=== PATIENT | female | born 1990 | race African-American/Black ===

== ENCOUNTER 2016-10-18 01:20 | Emergency (ER) | payer SELFPAY ==
[~2016-10-18] VITALS: Ht 170.2 cm; Wt 73.9 kg
--- NOTE | 2016-10-18 01:27 | PHYS DOC ---
Past Medical History Past Medical History: No Pertinent History Past Surgical History: No Surgical History Alcohol Use: None Drug Use: None Adult General Chief Complaint Chief Complaint: ABDOMINAL PAIN IN HPI HPI Patient is a 26 year old to -[place] female who presents with intermittent abdominal pain in the left side. She states she's never had this issue before with her other states been going on for last 3 days very intermittent and comes and goes and was concerned that something could be wrong. She denies any vaginal bleeding, she states she's having her normal vaginal discharge which she's had since she's been . She denies any nausea vomiting or other concerns at this time. Review of Systems Review of Systems Constitutional: Denies fever or chills [] Eyes: Denies change in visual acuity, redness, or eye pain [] HENT: Denies nasal congestion or sore throat [] Respiratory: Denies cough or shortness of breath [] Cardiovascular: No additional information not addressed in HPI [] GI: Denies abdominal pain, nausea, vomiting, bloody stools or diarrhea [] : Denies dysuria or hematuria [] Musculoskeletal: Denies back pain or joint pain [] Integument: Denies rash or skin lesions [] Neurologic: Denies headache, focal weakness or sensory changes [] Endocrine: Denies polyuria or polydipsia [] Allergies Allergies Allergies Coded Allergies Type Severity Reaction Last Updated Verified No Known Drug Allergies 11/03/14 No Physical Exam Physical Exam Constitutional: Well developed, well nourished, no acute distress, non-toxic appearance. [] HENT: Normocephalic, atraumatic, bilateral external ears normal, oropharynx moist, no oral exudates, nose normal. [] Eyes: PERRLA, EOMI, conjunctiva normal, no discharge. [] Neck: Normal range of motion, no tenderness, supple, no stridor. [] Cardiovascular:Heart rate regular rhythm, no murmur [] Lungs & Thorax: Bilateral breath sounds clear to auscultation [] Abdomengenital exam: Bowel sounds normal, soft, no tenderness, no masses, no pulsatile masses. Normal external genitalia, no bleeding in the vault, no discharge, no cervical motion tenderness noted. Skin: Warm, dry, no erythema, no rash. [] Back: No tenderness, no CVA tenderness. [] Extremities: No tenderness, no cyanosis, no clubbing, ROM intact, no edema. [] Neurologic: Alert and oriented X 3, normal motor function, normal sensory function, no focal deficits noted. [] Psychologic: Affect normal, judgement normal, mood normal. [] Current Patient Data Vital Signs Vital Signs Date Time Temp Pulse Resp B/P (MAP) Pulse Ox O2 Delivery O2 Flow Rate FiO2 10/18/16 03:02 80 20 108/74 (85) 98 Room Air 10/18/16 01:40 98.3 98.3 Lab Values Laboratory Tests Test 10/18/16 00:55 10/18/16 01:45 10/18/16 02:00 POC Urine HCG, Qualitative Hcg positive (Negative) Urine Collection Type Unknown Urine Color Yellow Urine Clarity Clear Urine pH 6.0 Urine Specific [place] 1.025 Urine Protein Negative mg/dL (NEG-TRACE) Urine Glucose (UA) Negative mg/dL (NEG) Urine Ketones (Stick) Negative mg/dL (NEG) Urine Blood Small (NEG) Urine Nitrite Negative (NEG) Urine Bilirubin Negative (NEG) Urine Urobilinogen Dipstick 0.2 mg/dL (0.2 mg/dL) Urine Leukocyte Esterase Trace (NEG) Urine RBC 3-5 /HPF (0-2) Urine WBC 5-10 /HPF (0-4) Urine Squamous Epithelial Cells Mod /LPF Urine Bacteria Few /HPF (0-FEW) Urine Mucus Mod /LPF White Blood Count 9.3 x10^3/uL (4.0-11.0) Red Blood Count 3.63 x10^6/uL (3.50-5.40) Hemoglobin 12.2 g/dL (12.0-15.5) Hematocrit 36.3 % (36.0-47.0) Mean Corpuscular Volume 100 fL (79-100) Mean Corpuscular Hemoglobin 34 pg (25-35) Mean Corpuscular Hemoglobin Concent 34 g/dL (31-37) Red Cell Distribution Width 13.4 % (11.5-14.5) Platelet Count 256 x10^3/uL (140-400) Neutrophils (%) (Auto) 55 % (31-73) Lymphocytes (%) (Auto) 37 % (24-48) Monocytes (%) (Auto) 6 % (0-9) Eosinophils (%) (Auto) 1 % (0-3) Basophils (%) (Auto) 1 % (0-3) Neutrophils # (Auto) 5.1 x10^3uL (1.8-7.7) Lymphocytes # (Auto) 3.4 x10^3/uL (1.0-4.8) Monocytes # (Auto) 0.6 x10^3/uL (0.0-1.1) Eosinophils # (Auto) 0.1 x10^3/uL (0.0-0.7) Basophils # (Auto) 0.1 x10^3/uL (0.0-0.2) Prothrombin Time 12.5 SEC (11.7-14.0) Prothrombin Time INR 1.0 (0.8-1.1) PTT 28 SEC (24-38) Maternal Serum HCG Beta Subunit 232161 mIU/mL (0-5) H Sodium Level 140 mmol/L (136-145) Potassium Level 3.3 mmol/L (3.5-5.1) L Chloride Level 105 mmol/L (98-107) Carbon Dioxide Level 27 mmol/L (21-32) Anion Gap 8 (6-14) Blood Urea Nitrogen 11 mg/dL (7-20) Creatinine 0.7 mg/dL (0.6-1.0) Estimated GFR (Cockcroft-Gault) 123.4 Glucose Level 53 mg/dL (70-99) L Calcium Level 9.0 mg/dL (8.5-10.1) Total Bilirubin 0.2 mg/dL (0.2-1.0) Direct Bilirubin 0.1 mg/dL (0.0-0.2) Aspartate Amino Transferase (AST) 17 U/L (15-37) Alanine Aminotransferase (ALT) 17 U/L (14-59) Alkaline Phosphatase 77 U/L (46-116) Total Protein 7.6 g/dL (6.4-8.2) Albumin 4.0 g/dL (3.4-5.0) Laboratory Tests 10/18/16 02:00 Laboratory Tests 10/18/16 02:00 Microbiology 10/18/16 Wet Prep - Final, Complete Laboratory Tests Test 10/18/16 00:55 10/18/16 01:45 10/18/16 02:00 POC Urine HCG, Qualitative Hcg positive (Negative) Urine Collection Type Unknown Urine Color Yellow Urine Clarity Clear Urine pH 6.0 Urine Specific [place] 1.025 Urine Protein Negative mg/dL (NEG-TRACE) Urine Glucose (UA) Negative mg/dL (NEG) Urine Ketones (Stick) Negative mg/dL (NEG) Urine Blood Small (NEG) Urine Nitrite Negative (NEG) Urine Bilirubin Negative (NEG) Urine Urobilinogen Dipstick 0.2 mg/dL (0.2 mg/dL) Urine Leukocyte Esterase Trace (NEG) Urine RBC 3-5 /HPF (0-2) Urine WBC 5-10 /HPF (0-4) Urine Squamous Epithelial Cells Mod /LPF Urine Bacteria Few /HPF (0-FEW) Urine Mucus Mod /LPF White Blood Count 9.3 x10^3/uL (4.0-11.0) Red Blood Count 3.63 x10^6/uL (3.50-5.40) Hemoglobin 12.2 g/dL (12.0-15.5) Hematocrit 36.3 % (36.0-47.0) Mean Corpuscular Volume 100 fL (79-100) Mean Corpuscular Hemoglobin 34 pg (25-35) Mean Corpuscular Hemoglobin Concent 34 g/dL (31-37) Red Cell Distribution Width 13.4 % (11.5-14.5) Platelet Count 256 x10^3/uL (140-400) Neutrophils (%) (Auto) 55 % (31-73) Lymphocytes (%) (Auto) 37 % (24-48) Monocytes (%) (Auto) 6 % (0-9) Eosinophils (%) (Auto) 1 % (0-3) Basophils (%) (Auto) 1 % (0-3) Neutrophils # (Auto) 5.1 x10^3uL (1.8-7.7) Lymphocytes # (Auto) 3.4 x10^3/uL (1.0-4.8) Monocytes # (Auto) 0.6 x10^3/uL (0.0-1.1) Eosinophils # (Auto) 0.1 x10^3/uL (0.0-0.7) Basophils # (Auto) 0.1 x10^3/uL (0.0-0.2) Prothrombin Time 12.5 SEC (11.7-14.0) Prothrombin Time INR 1.0 (0.8-1.1) PTT 28 SEC (24-38) Maternal Serum HCG Beta Subunit 554034 mIU/mL (0-5) H Sodium Level 140 mmol/L (136-145) Potassium Level 3.3 mmol/L (3.5-5.1) L Chloride Level 105 mmol/L (98-107) Carbon Dioxide Level 27 mmol/L (21-32) Anion Gap 8 (6-14) Blood Urea Nitrogen 11 mg/dL (7-20) Creatinine 0.7 mg/dL (0.6-1.0) Estimated GFR (Cockcroft-Gault) 123.4 Glucose Level 53 mg/dL (70-99) L Calcium Level 9.0 mg/dL (8.5-10.1) Total Bilirubin 0.2 mg/dL (0.2-1.0) Direct Bilirubin 0.1 mg/dL (0.0-0.2) Aspartate Amino Transferase (AST) 17 U/L (15-37) Alanine Aminotransferase (ALT) 17 U/L (14-59) Alkaline Phosphatase 77 U/L (46-116) Total Protein 7.6 g/dL (6.4-8.2) Albumin 4.0 g/dL (3.4-5.0) Laboratory Tests 10/18/16 02:00 Laboratory Tests 10/18/16 02:00 Microbiology 10/18/16 Wet Prep - Final, Complete EKG EKG [] Radiology/Procedures Radiology/Procedures [facility] [address] [place] [address] IMAGING REPORT Signed PATIENT: EUGENIA VILCHIS ACCOUNT: [id number] : 1990 LOCATION: ER AGE: 26 SEX: F EXAM STATUS: REG ER ORD. PHYSICIAN: STEPHANIE CA MD REASON: vaginal bleeding PROCEDURE: OB < 14 WKS OB ultrasound less than 14 weeks to include transabdominal and transvaginal imaging 10/18/2016 CLINICAL HISTORY: First trimester with pelvic pain. TECHNIQUE: Using the distended urinary bladder as a sonographic window, a real-time ultrasound examination of the pelvis was performed. Additionally in an attempt to better evaluate the uterus and adnexa, a transvaginal ultrasound study was performed. Multiple images were obtained. FINDINGS: A gestational sac is seen within the endometrial canal within the fundus/body of the uterus. Within this gestational sac an embryonic pole and associated yolk sac are seen. The CRL of the embryonic pole measures 1.2 cm. This corresponds to an estimated gestational age by ultrasound of 7 weeks 3 days plus or minus a standard deviation of 7 days. Embryonic cardiac activity is seen with a heart rate of 144 beats per minutes. The uterus is otherwise within normal limits. Both ovaries are within normal limits in size and echogenicity. The right ovary measures 3.3 x 2.0 x 1.8 cm in size. The left ovary measures 2.7 x 1.3 x 1.2 cm in size. No adnexal mass is seen. No free fluid is noted. IMPRESSION: Single living IUP with an estimated gestational age by ultrasound of 7 weeks 3 days plus or minus the standard deviation of 7 days. The estimated date of delivery by ultrasound is 06/03/2017. Electronically signed by: Addy Gregorio MD (10/18/2016 2:53 AM) DICTATED and SIGNED BY: ADDY GREGORIO MD DATE: 10/18/16 0248 CC: STEPHANIE CA MD; NO PCP ~ Impressions: IUP Bacterial vaginosis Bacteriuria in Hypokalemia Course & Med Decision Making Course & Med Decision Making Pertinent Labs and Imaging studies reviewed. (See chart for details) RUN DATE: 10/18/16 PAGE 1 RUN TIME: 0241 [facility] [address] [place] [address] Lionel Lozano M.D., [employer] PATIENT: EUGENIA VILCHIS ACCT: [id number] LOC: ER U : [id number] AGE/SX: 26/ ROOM: REG : 10/18/[address]: STEPHANIE CA MD : 1990 BED: DIS : STATUS: REG ER TLOC: SPEC #: [id number] MAUREEN: 10/18/16 STATUS: COMP REQ #: [id number] RECD: 10/18/[address]: STEPHANIE CA MD SOURCE: VAGINAL ENTR: 10/18/[address] [facility] [address]: MARIKA ANTON SPDESC: ORDERED: WET PREP COMMENTS: Has specimen been collected/obtained? Y Procedure Result WET PREP Final YEAST NONE SEEN TRICHOMONAS NONE SEEN CLUE CELLS CLUE CELLS PRESENT ALTERED SERGEI ALTERED SERGEI PRESENT SUGGESTIVE OF BACTERIAL VAGINOSIS WBCS OCCASIONAL RBCS NO RBCS SEEN SQUAMOUS EPS MANY END OF REPORT Patient has an IUP on ultrasound, she also has bacterial vaginosis. Will discharge with clindamycin 300 mg twice a day for 7 days. She also has bacteria in her urine, we will treat with nitrofurantoin for 7 days. Her potassium is 3.3 Vernell 40 mg by mouth 1 was ordered for replacement. Return precautions given she is agreeable Plan B discharged in stable condition at this time. She is to follow-up with her OB. Cristofer Disclaimer Cristofer Disclaimer This electronic medical record was generated, in whole or in part, using a voice recognition dictation system. Departure Departure Impression: Primary Impression: Bacterial vaginosis Additional Impression: Disposition: HOME, SELF-CARE Referrals: NO PCP (PCP) Patient Instructions: Bacterial Vaginosis, [id number] Additional Instructions: The ultrasound report is stated below. You have bacterial vaginosis would take anabolic's for the next 7 days. You will need to follow-up with the [facility] physician. Return ER for severe pains, bleeding, discharge or other concerns. You also have a urinary tract infection when he taken a bite should this for 7 days. [facility] [address] [place] [address] IMAGING REPORT Signed PATIENT: EUGENIA VILCHIS ACCOUNT: [id number] : 1990 LOCATION: ER AGE: 26 SEX: F EXAM STATUS: REG ER REASON: vaginal bleeding PROCEDURE: OB < 14 WKS OB ultrasound less than 14 weeks to include transabdominal and transvaginal imaging 10/18/2016 CLINICAL HISTORY: First trimester with pelvic pain. TECHNIQUE: Using the distended urinary bladder as a sonographic window, a real-time ultrasound examination of the pelvis was performed. Additionally in an attempt to better evaluate the uterus and adnexa, a transvaginal ultrasound study was performed. Multiple images were obtained. FINDINGS: A gestational sac is seen within the endometrial canal within the fundus/body of the uterus. Within this gestational sac an embryonic pole and associated yolk sac are seen. The CRL of the embryonic pole measures 1.2 cm. This corresponds to an estimated gestational age by ultrasound of 7 weeks 3 days plus or minus a standard deviation of 7 days. Embryonic cardiac activity is seen with a heart rate of 144 beats per minutes. The uterus is otherwise within normal limits. Both ovaries are within normal limits in size and echogenicity. The right ovary measures 3.3 x 2.0 x 1.8 cm in size. The left ovary measures 2.7 x 1.3 x 1.2 cm in size. No adnexal mass is seen. No free fluid is noted. IMPRESSION: Single living IUP with an estimated gestational age by ultrasound of 7 weeks 3 days plus or minus the standard deviation of 7 days. The estimated date of delivery by ultrasound is 06/03/2017. Electronically signed by: Addy Gregorio MD (10/18/2016 2:53 AM) Scripts Nitrofurantoin Macrocrystal (NITROFURANTOIN) 100 Mg Capsule 1 CAP PO BID, #14 CAP Prov: STEPHANIE CA MD 10/18/16 Clindamycin Hcl (CLINDAMYCIN HCL) 300 Mg Capsule 1 CAP PO BID, #14 CAP Prov: STEPHANIE CA MD 10/18/16 Problem Qualifiers Additional Impression: Weeks of gestation: unspecified Qualified Codes: Z33.1 - state, incidental STEPHANIE CA MD Oct 18, 2016 01:27
[2016-10-18 01:54] LABS: BILIRUBIN,URINE NEGATIVE (NEG); GLUCOSE,URINE NEGATIVE (NEG); NITRITE,URINE NEGATIVE (NEG); PROTEIN,URINE NEGATIVE (NEG-TRACE); UROBILINOGEN,URINE 0.2 mg/dL (0.2 mg/dL)
[2016-10-18 02:02] LABS: BACTERIA,URINE FEW /HPF (0-FEW); SQUAMOUS EPITHELIAL CELL,UR MOD /LPF
[2016-10-18 02:07] LABS: BASO # 0.1 x10^3/uL (0.0-0.2); BASO % 1 % (0-3); EOS % 1 % (0-3); HEMATOCRIT 36.3 % (36.0-47.0); HEMOGLOBIN 12.2 g/dL (12.0-15.5); LYMPH # 3.4 x10^3/uL (1.0-4.8); LYMPH % 37 % (24-48); MEAN CORPUSCULAR HEMOGLOBIN 34 pg (25-35); MEAN CORPUSCULAR HGB CONC 34 g/dL (31-37); MEAN CORPUSCULAR VOLUME 100 fL (79-100); MONO % 6 % (0-9); NEUT % 55 % (31-73); PLATELET COUNT 256 x10^3/uL (140-400); RED BLOOD COUNT 3.63 x10^6/uL (3.50-5.40); RED CELL DISTRIBUTION WIDTH 13.4 % (11.5-14.5); WHITE BLOOD COUNT 9.3 x10^3/uL (4.0-11.0)
[2016-10-18 02:16] LABS: PROTHROMBIN TIME PATIENT 12.5 SEC (11.7-14.0)
[2016-10-18 02:19] LABS: CREATININE 0.7 mg/dL (0.6-1.0); GFR 123.4; POTASSIUM 3.3 mmol/L (3.5-5.1)
[2016-10-18 02:25] LABS: DIRECT BILIRUBIN 0.1 mg/dL (0.0-0.2); TOTAL BILIRUBIN 0.2 mg/dL (0.2-1.0); TOTAL PROTEIN 7.6 g/dL (6.4-8.2)
--- NOTE | 2016-10-18 02:56 | RAD ---
OB ultrasound less than 14 weeks to include transabdominal and transvaginal imaging 10/18/2016 CLINICAL HISTORY: First trimester with pelvic pain. TECHNIQUE: Using the distended urinary bladder as a sonographic window, a real-time ultrasound examination of the pelvis was performed. Additionally in an attempt to better evaluate the uterus and adnexa, a transvaginal ultrasound study was performed. Multiple images were obtained. FINDINGS: A gestational sac is seen within the endometrial canal within the fundus/body of the uterus. Within this gestational sac an embryonic pole and associated yolk sac are seen. The CRL of the embryonic pole measures 1.2 cm. This corresponds to an estimated gestational age by ultrasound of 7 weeks 3 days plus or minus a standard deviation of 7 days. Embryonic cardiac activity is seen with a heart rate of 144 beats per minutes. The uterus is otherwise within normal limits. Both ovaries are within normal limits in size and echogenicity. The right ovary measures 3.3 x 2.0 x 1.8 cm in size. The left ovary measures 2.7 x 1.3 x 1.2 cm in size. No adnexal mass is seen. No free fluid is noted. IMPRESSION: Single living IUP with an estimated gestational age by ultrasound of 7 weeks 3 days plus or minus the standard deviation of 7 days. The estimated date of delivery by ultrasound is 06/03/2017. Electronically signed by: Addy Gregorio MD (10/18/2016 2:53 AM)
[2016-10-18 03:02] VITALS: BP 108/74
[2016-10-18] MEDS ORDERED: CLIN300C8 PO (03:31)
[2016-10-18] MEDS ORDERED: NITR100C PO (03:34)
[2016-10-18] MEDS ORDERED: POTASSIUM CHLORIDE 20 MEQ TABLET.ER. PO ONE (03:45)
== END 2016-10-18 03:49 | disposition home or self-care (01) ==
LOC: ER 01:20
DX: O23.591 Infection of other part of genital tract in pregnancy, first trimester (principal); N76.0 Acute vaginitis; B96.89 Other specified bacterial agents as the cause of diseases classified elsewhere; O26.891 Other specified pregnancy related conditions, first trimester; E87.6 Hypokalemia; Z3A.01 Less than 8 weeks gestation of pregnancy
CPT/HCPCS: 36415; 76801; 80048; 80076; 81001; 81025; 84702; 85027; 85610; 85730; 86900; 86901; 87086; 87491; 87591; 99285; Q0111